=== PATIENT | male | born 1995 | race Caucasian/White ===

== ENCOUNTER 2016-10-11 13:24 | Emergency (ER) | payer BC ==
[~2016-10-11] VITALS: Ht 188 cm; Wt 90.0 kg
[2016-10-11] MEDS ORDERED: ONDANSETRON ODT 4 MG ONE (13:51)
[2016-10-11] MEDS ORDERED: FAMOTIDINE 20 MG/2 ML ONE (13:57)
[2016-10-11] MEDS ORDERED: MORPHINE SULFATE 4 MG/ML, 1ML ONE (13:57)
[2016-10-11] MEDS ORDERED: FAMOTIDINE 20 MG/2 ML IVP ONE (14:00)
[2016-10-11] MEDS ORDERED: ONDANSETRON ODT 4 MG PO ONE (14:00)
[2016-10-11] MEDS ORDERED: MORPHINE SULFATE 4 MG/ML, 1ML IVPush PRN (14:00)
[2016-10-11] MEDS ORDERED: SODIUM CHLORIDE FLUSH 10ML SYR IVF ONE (14:00)
[2016-10-11] MEDS ORDERED: SODIUM CHLORIDE 0.9% 1,000ML IVBOLUS ONE (14:00)
[2016-10-11] MEDS ORDERED: MAALOX/HYOSCYAMINE/LIDOCAINE 45 ML BOTTLE ONE (14:26)
[2016-10-11] MEDS ORDERED: MAALOX/HYOSCYAMINE/LIDOCAINE 45 ML BOTTLE PO ONE (14:30)
[2016-10-11 14:40] LABS: ASPARTATE AMINO TRANSFERASE 10 U/L (15-37); BLOOD UREA NITROGEN 12 mg/dL (7-18)
[2016-10-11 16:03] VITALS: BP 135/74
== END 2016-10-11 16:06 | disposition home or self-care (01) ==
LOC: ED 15:45
DX: K29.01 Acute gastritis with bleeding (principal)
CPT/HCPCS: 36415; 80053; 83690; 85025; 96361; 96374; 99285; J7030; Q0162; S0028

== ENCOUNTER 2017-02-15 06:26 | Emergency (ER) | payer BC ==
[~2017-02-15] VITALS: Ht 188 cm; Wt 95.8 kg
[2017-02-15] MEDS ORDERED: IBUPROFEN 200 MG TABLET PO ONE (07:00)
[2017-02-15] MEDS ORDERED: ACETAMINOPHEN 500 MG TABLET PO ONE (07:00)
[2017-02-15] MEDS ORDERED: SODIUM CHLORIDE 0.9% 1,000ML IVBOLUS ONE (07:00)
[2017-02-15] MEDS ORDERED: SODIUM CHLORIDE FLUSH 10ML SYR IVF ONE (07:00)
[2017-02-15] MEDS ORDERED: IBUPROFEN 200 MG TABLET ONE ×2 (07:04→07:05)
[2017-02-15] MEDS ORDERED: ACETAMINOPHEN 500 MG TABLET ONE (07:05)
[2017-02-15] MEDS ORDERED: ALBUTEROL INH (07:17)
[2017-02-15 07:38] LABS: HEMATOCRIT 49.5 % (39.2-51.8); HEMOGLOBIN 17.3 g/dL (13.7-18.0); WHITE BLOOD COUNT 10.5 x10^3/uL (3.4-10)
[2017-02-15 07:49] LABS: BLOOD UREA NITROGEN 14 mg/dL (7-18)
[2017-02-15 07:54] LABS: RAPID INFLUENZA A Negative (Negative); RAPID INFLUENZA B Negative (Negative)
[2017-02-15] MEDS ORDERED: LIDOCAINE 1%, 20ML ONE (08:52)
[2017-02-15 10:29] LABS: GLUCOSE, CSF 64 mg/dL (40-80)
[2017-02-15 12:00] VITALS: BP 113/55
== END 2017-02-15 12:21 | disposition home or self-care (01) ==
LOC: ED 10:05
DX: B34.9 Viral infection, unspecified (principal)
CPT/HCPCS: 36415; 62270; 70450; 71010; 80048; 81003; 82040; 82945; 83605; 84157; 85025; 86308; 87070; 87081; 87147; 87205; 87400; 87880; 89051; 93005; 96360; 99285; J7030